=== PATIENT | male | born 1990 | race Caucasian/White ===

== ENCOUNTER 2017-11-23 17:14 | Emergency (ER) | payer SELFPAY ==
[~2017-11-23] VITALS: Ht 180.3 cm; Wt 81.6 kg
[2017-11-23 17:27] VITALS: BP_SYST 152
--- NOTE | 2017-11-23 17:31 | NUR ---
Patient triaged and placed in waiting room. VSS and patient appears in no acute distress at this time. Accompanied by FRIEND, awaiting available bed, and MD notified of need for MSE.
--- NOTE | 2017-11-23 18:07 | NUR ---
Pt left without being seen. Pt states "took norco before coming to the ER and feels better now."
== END 2017-11-23 18:03 | disposition left against medical advice (07) ==
LOC: SED 17:14
DX: Z53.21 Procedure and treatment not carried out due to patient leaving prior to being seen by health care provider (principal)